=== PATIENT | male | born 1995 | race African-American/Black ===

== ENCOUNTER 2017-12-07 07:45 | Day surgery (SDC) | payer OTHER ==
[2017-12-06 15:25] VITALS: BMI 25.8
[2017-12-07] MEDS ORDERED: CEFAZOLIN/Water 2 GM/20 ML SYRINGE ONE (08:16)
[2017-12-07] MEDS ORDERED: Dexamethasone 4 mg/ml Vial ONE (08:36)
[2017-12-07] MEDS ORDERED: Fentanyl 100 MCG/2 ML VIAL ONE (08:36)
[2017-12-07] MEDS ORDERED: Midazolam HCl 2 mg/2 ml Vial ONE (08:36)
[2017-12-07] MEDS ORDERED: Ketorolac Tromethamine 30 MG/ML VIAL IVP PRN (08:48)
[2017-12-07] MEDS ORDERED: Ondansetron HCl/PF 4 MG/2 ML Vial IVP PRN (08:48)
[2017-12-07] MEDS ORDERED: traMADol HCl 50 MG TAB PO PRN ×2 (08:48)
[2017-12-07] MEDS ORDERED: Fentanyl 100 MCG/2 ML VIAL IV PRN (08:48)
[2017-12-07] MEDS ORDERED: HYDROcodone/Acetaminophen 10/325 mg Tablet PO PRN ×2 (08:48)
[2017-12-07] MEDS ORDERED: Promethazine HCl 25 MG/ML VIAL IM PRN (08:48)
[2017-12-07] MEDS ORDERED: Ropivacaine 0.2% 550 ML 550 ML NERVE BLCK SCH (08:48)
[2017-12-07] MEDS ORDERED: Zolpidem Tartrate 5 MG TAB PO PRN (08:48)
--- NOTE | 2017-12-07 12:28 | RAD ---
LEFT ANKLE THREE VIEWS: History: Intraoperative films. FINDINGS: This series of C-arm views show a fixation of the distal fibular fracture with plate and screws. Over all bony alignment is satisfactory. IMPRESSION: Open reduction and internal fixation of distal fibular fracture. POS: C
--- NOTE | 2017-12-07 14:11 | OP ---
DATE OF PROCEDURE: 12/07/2017 PREOPERATIVE DIAGNOSIS: Unstable left lateral malleolar fracture. POSTOPERATIVE DIAGNOSIS: Unstable left lateral malleolar fracture. PROCEDURE PERFORMED: 1. Left ankle open reduction internal fixation of left lateral malleolus fracture. 2. Open removal of the deltoid ligament from inside the joint followed by deltoid ligament repair. 3. Placement of short leg splint, left lower extremity. SURGEON: Terrell Monzon M.D. [employer] SAL[employer] REPRESENTATIVE: Dr. Hampton. BLOOD LOSS: Minimal. COMPLICATIONS: None. ANESTHETIC: The patient did have general anesthetic, he had preoperative blocks. IMPLANTS: We used a [employer] 1/3 semi tubular locking plate with six bicortical screws. We also used one 3.5 cortical screw as a lag screw. DISPOSITION: He did go to the recovery room in stable condition. INDICATIONS: A 22-year-old male who injured his ankle on Tuesday playing football, was felt to have an unstable ankle fracture with probably retained deltoid ligament and the mortise as it was so wide on x-ray. OPERATIVE PROCEDURE: After all appropriate consent forms were explained and signed by Ren, he was taken to the operating room and at this time, he was given general anesthetic. Once anesthesia was appropriate, a tourniquet was placed in the left thigh and leg was then prepped and draped from the k nee down in standard surgical fashion. Limb was then exsanguinated and the tourniquet was taken up t o 250 mmHg. At this time, medial incision was made down through skin only. The Bovie was used to co agulate any brisk venous bleeding. Scissor dissection was used to get down to the injury and indeed has a supposed preoperatively. The deltoid ligament had ripped off and flipped into the ankle joint. This was pulled out of the joint. The joint was inspected. No significant cartilage damage was no josh. We then thoroughly irrigated the joint, placed some tag sutures in both sides of the deltoid li gament for later repair. We then turned our attention to the lateral side. Blade was used to incise down through skin. Bovie was used to coagulate any brisk venous bleeding. Secondary to the high na ture of the fibula fracture, the distal portion was readily accessible from the injury distally and t he periosteum was taken sharply and periosteal elevator was used to expose the bone. Proximally, we had to open up some of the muscle fascia with the surgical scissors, being careful not to injury any neurovascular structures and then pushed our soft tissue out of the way to gain access to our tibia. Again, the fibula bone itself was sharply cut and elevator was used to incise the periosteum. We th en gained access to our fracture site. We thoroughly irrigated and dried. They were too small corti estrellita pieces which were floating and removed to aid in our reduction. We then used a distal traction a nd rotation and lion jaw clamps to obtain a reduction. Two clamps were used. We then placed one 3.5 bicortical lag screw from superior distal to the inferior proximal by first drilling both cortices w ith a 2.5 and then over drilling the proximal cortex with a 3.5. Once this lag screw was placed, cla mps were able to be removed. We then took a 1/3 semi tubular locking plate and placed this on our fi bula. We then placed one screw distal to the fracture, one screw proximal to the fracture and ra t in a C-arm to confirm reduction. Reduction was anatomic at this time. We then placed the remainin g screws leaving our screw in the plate for possible syndesmotic screw open at this time. C-arm was brought in one more time and the lion jaw clamp was attached to the fibula and we pulled for barbara to make sure the joint did not open. This was found to be intact and stable. This last screw and t hen bicortical screw placed through it. At this time, final films were taken in AP, mortise, lateral and external rotation view and kept on fluoroscopy machine. We then thoroughly irrigated both media l and lateral sides. We then closed with deep Vicryl, 2-0 Vicryl, and surgical hesham on skin. Bul ky sterile dressing was applied and the tourniquet was let down. His toes pinked up nicely and at th is time a well-padded posterior splint was applied to the left lower extremity. The patient at this time was awakened and taken to the recovery room in stable condition. All counts were correct at the end of the case and he did receive preoperative IV antibiotics.
[2017-12-07] MEDS ORDERED: Ropivacaine 0.5% HCl/PF (150 MG/30 ML VIAL) ONE (14:14)
[2017-12-07] MEDS ORDERED: Bupivacaine HCl 0.5%/Epinephrine 1:200,000/PF 30 ml Vial ONE (14:14)
[2017-12-07] MEDS ORDERED: Ropivacaine 0.2% HCl/PF (40 MG/20 ML VIAL) ONE (14:14)
[2017-12-07] MEDS ORDERED: PHENYLEPHRINE-NS 100 MCG/ML 10 ML SYRINGE ONE (14:29)
[2017-12-07] MEDS ORDERED: Ketorolac Tromethamine 30 MG/ML VIAL ONE (14:29)
[2017-12-07] MEDS ORDERED: PROPOFOL 200 MG/20 ML VIAL ONE (14:29)
[2017-12-07] MEDS ORDERED: Ondansetron HCl/PF 4 MG/2 ML Vial ONE (14:29)
[2017-12-07] MEDS ORDERED: Lidocaine 1% PF 5 ML VIAL ONE (14:29)
== END 2017-12-07 13:25 | disposition home or self-care (01) ==
LOC: SDC 07:45
PROVIDERS: ATTEND Orthopaedic Surgery
PROC: 0MQR0ZZ Repair Left Ankle Bursa and Ligament, Open Approach (ICD-10-PCS; principal; 2017-12-07)
PROC: 0QSK0ZZ Reposition Left Fibula, Open Approach (ICD-10-PCS; principal; 2017-12-07)
DX: S82.62XA Displaced fracture of lateral malleolus of left fibula, initial encounter for closed fracture (principal); X58.XXXA Exposure to other specified factors, initial encounter
CPT/HCPCS: 76001; A4306; C1713; G8978-GP-CL; G8979-GP-CL; G8980-GP-CL; J0670; J1100; J1885; J2001; J2250; J2405; J2704; J2795; J3010